=== PATIENT | female | born 1985 | race Two or more races ===

== ENCOUNTER 2021-09-20 08:45 | Inpatient (IN) | payer OTHER ==
[~2021-09-20] VITALS: Ht 172.7 cm; Wt 2.7 kg
[2021-09-20] MEDS ORDERED: SYNTHROID50 MCG (12:26)
[2021-09-22] MEDS ORDERED: PRENATAL CAPLE1 EAC1 PO (09:10)
== END 2021-09-25 14:41 | disposition home or self-care (01) | DRG 785 ==
LOC: O/R 09-22 06:30 → OB/GYN 09-22 08:45 → SURG-SUITE 09-22 15:12
PROVIDERS: ADMIT Obstetrics & Gynecology; ATTEND Obstetrics & Gynecology
PROC: 0UB70ZZ Excision of Bilateral Fallopian Tubes, Open Approach (ICD-10-PCS; 2021-09-22)
PROC: 4A1HXFZ Monitoring of Products of Conception, Cardiac Rhythm, External Approach (ICD-10-PCS; 2021-09-22)
PROC: 10D00Z1 Extraction of Products of Conception, Low, Open Approach (ICD-10-PCS; principal; 2021-09-22 10:30)
DX: O82 Encounter for cesarean delivery without indication (principal); O34.211 Maternal care for low transverse scar from previous cesarean delivery; Z30.2 Encounter for sterilization; Z3A.39 39 weeks gestation of pregnancy; Z37.0 Single live birth